=== PATIENT | male | born 1975 | race Caucasian/White ===

== ENCOUNTER 2025-09-01 11:59 | Emergency (ER) | payer OTHER, SELFPAY ==
[2025-09-01 12:08] VITALS: BP 113/66; PULSE 83; RESP 16; TEMP 36.6; O2SAT 98
--- NOTE | 2025-09-01 12:15 | DI.CT_ITS ---
Exam(s) CT HEAD WO EXAM: CT HEAD WO CLINICAL HISTORY: head trauma. TECHNIQUE: Imaging Protocol: Axial computed tomography images with coronal and sagittal reformatted images were created and reviewed COMPARISON: No exams were available for comparison FINDINGS: Ventricles and Extra axial spaces: Normal in size and morphology for the patient's age. Hemorrhage: None. Cerebral parenchyma: Normal. Midline shift: None. Brainstem/Cerebellum: Normal. Calvarium: Normal. Visualized Paranasal sinuses/Mastoids: There is mucosal thickening in the ethmoid air cells. The mastoid air cells are clear. Soft Tissues: Unremarkable. IMPRESSION: No acute intracranial process. RADIATION DOSE DELIVERED: 875.65mGy.cm Total DLP DATA REPOSITORY: All CT scans at this facility are submitted to the National Radiology Data Registry (NRDR) Dose Index Registry (DIR) with the [employer] (ACR). RADIATION OPTIMIZATION: All CT scans at this facility use at least one of these dose optimization techniques: automated exposure control; mA and/or kV adjustment per patient size (includes targeted exams where dose is matched to clinical indication); or iterative reconstruction.
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
[2025-09-01] MEDS: Acetaminophen 500 MG TAB 1000 MG PO (12:44)
[2025-09-01 14:28] VITALS: BP 115/75; PULSE 76; RESP 18; TEMP 36.8; O2SAT 100
== END 2025-09-01 14:55 | disposition home or self-care (01) ==
PROVIDERS: Emergency Provider General Practice
DX: S06.0X0A Concussion without loss of consciousness, initial encounter (principal); S00.01XA Abrasion of scalp, initial encounter; W22.01XA Walked into wall, initial encounter; Y92.148 Other place in prison as the place of occurrence of the external cause; Y99.0 Civilian activity done for income or pay
CPT/HCPCS: 99284; 70450